=== PATIENT | female | born 1980 | race African-American/Black ===

== ENCOUNTER 2018-01-21 16:21 | Emergency (ER) | payer MEDICAID ==
[~2018-01-21] VITALS: Ht 162.6 cm; Wt 63.5 kg
[2018-01-21 17:16] VITALS: BP 143/92
== END 2018-01-21 18:15 | disposition home or self-care (01) ==
LOC: ER 16:26
DX: S16.1XXA Strain of muscle, fascia and tendon at neck level, initial encounter (principal); S39.012A Strain of muscle, fascia and tendon of lower back, initial encounter; V43.52XA Car driver injured in collision with other type car in traffic accident, initial encounter; Y93.89 Activity, other specified; Y92.488 Other paved roadways as the place of occurrence of the external cause; Y99.8 Other external cause status
CPT/HCPCS: 72040